=== PATIENT | female | born 1945 | race Caucasian/White ===

== ENCOUNTER 2024-04-29 07:34 | Day surgery (SDC) | payer MEDICARE, BC ==
[2024-04-26 10:43] LABS: BILIRUBIN,URINE NEGATIVE (Neg); CLARITY,URINE CLEAR (Clear); COLOR,URINE YELLOW (Yellow); GLUCOSE, URINE NEGATIVE (Neg); KETONES,URINE NEGATIVE (Neg); LEUKOCYTE ESTERASE ,URINE NEGATIVE (Neg); NITRITES, URINE NEGATIVE (Neg); OCCULT BLOOD,URINE SMALL (Neg); PROTEIN,URINE NEGATIVE (Neg); UROBILINOGEN,URINE 0.2 E.U/dL (0.2-1.0)
[2024-04-26 10:43] LABS: BASOPHILS % (AUTO) 0.8 % (0-1); EOSINOPHILS # (AUTO) 0.1 X10'3 (0-0.9); EOSINOPHILS % (AUTO) 1.3 % (0-6); LYMPHOCYTES # (AUTO) 1.3 X10'3 (1.1-4.8); LYMPHOCYTES % (AUTO) 22.6 % (21-51); MEAN CORPUSCULAR HEMOGLOBIN 31.8 PG (27.0-31.0); MEAN CORPUSCULAR HGB CONC 32.8 g/dL (33.0-36.5); MEAN PLATELET VOLUME 7.1 FL (7.4-10.4); MONOCYTES # (AUTO) 0.5 X10'3 (0-0.9); MONOCYTES % (AUTO) 7.9 % (2-12); NEUTROPHILS % (AUTO) 67.4 % (42-75); PRE OP HEMATOCRIT 39.8 % (35.0-45.0); PRE OP HEMOGLOBIN 13.1 g/dL (12.0-16.0); PRE OP PLATELET COUNT 270 X10'3 (140-440); PRE OP WHITE BLOOD COUNT 5.9 10'3 (4.8-10.8)
[2024-04-26 10:57] LABS: ALBUMIN 3.5 G/DL (3.4-5.0); ALKALINE PHOSPHATASE 65 IU/L (46-116); BLOOD UREA NITROGEN 20 MG/DL (7-18); BUN/CREATININE RATIO 35.1 (10.0-20.0); CALCIUM 8.6 MG/DL (8.5-10.1); CHLORIDE 106 MMOL/L (99-107); CREATININE 0.57 MG/DL (0.40-0.90); PRE OP ALT 16 U/L (30-65); PRE OP ANION GAP 4 (8-16); PRE OP AST 9 U/L (10-37); PRE OP BILIRUB, TOTAL 0.5 MG/DL (0.0-1.0); PRE OP GLUCOSE 94 MG/DL (70-104); PRE OP POTASSIUM 4.8 MMOL/L (3.4-5.1); PRE OP SODIUM 141 MMOL/L (135-145); TOTAL CARBON DIOXIDE 31.4 MMOL/L (24-32); TOTAL PROTEIN 6.9 G/DL (6.4-8.2); eGFR > 90 ML/MIN
[2024-04-26 11:00] LABS: UA COLLECTION TYPE CLN CATCH MIDSTREAM
[2024-04-26 11:05] LABS: WBC,URINE 0-4 /HPF (0-4)
[2024-04-26 11:07] LABS: BACTERIA,URINE FEW /HPF (Neg); SQUAMOUS EPITHELIAL CELL,UR FEW /LPF (FEW)
[2024-04-29] VITALS (14 sets, daily range): BP systolic 133–160; BP diastolic 61–85; PULSE 53–67; RESP 12–20; TEMP 97.7; O2SAT 93–100
[~2024-04-29] VITALS: Ht 182.9 cm; Wt 95.8 kg
[2024-04-29] MEDS: DOCUMENT DATE & TIME OF BETA-BLOCKER PO ONE (05:30)
[~2024-04-29 07:34] MED LIST: CELE-148 PO; ESTR42.53 VG; METO-395 PO; MVI; OMEGA-3; TOLT4CAP28 PO; TURMERIC; VITAMIN C
[2024-04-29] MEDS: famotidine 20mg tablet PO ONE (08:40)
[2024-04-29] MEDS: ringers solution, lacted 1,000 ML IV SCH (08:40)
[2024-04-29] MEDS: ceFAZolin 2gm in dextrose, iso 50 ML IV ONE (08:41)
[2024-04-29] MEDS ORDERED: ringers solution, lacted 1,000 ML IV SCH (08:50)
[2024-04-29] MEDS ORDERED: proCHLORperazine 10 MG/2 ml inj IV PRN (08:50)
[2024-04-29] MEDS ORDERED: meperidine/PF 100mg/ml syringe IV PRN ×3 (08:50)
[2024-04-29] MEDS ORDERED: morphine 2 MG/ML inj. syringe IV PRN (08:50)
[2024-04-29] MEDS ORDERED: labetalol 20mg/4ml (5mg/ml) syringe IV PRN (08:50)
[2024-04-29] MEDS ORDERED: morphine 4 MG/ML inj SYRINge IV PRN (08:50)
[2024-04-29] MEDS ORDERED: ondansetron/PF 4mg/2ml inj IV PRN (08:50)
[2024-04-29] MEDS ORDERED: enalaprilat 1.25mg/ml 2ml vial IV PRN (08:50)
[2024-04-29] MEDS ORDERED: bacitracin 15gm ointment TP ONE (09:58)
[2024-04-29] MEDS ORDERED: BUPIVAcaine 2.5mg/ml inj 50ml vial (contains preservative) ONE (09:58)
[2024-04-29] MEDS ORDERED: sevoflurane 250ml liquid IH ONE (12:36)
[2024-04-29] MEDS ORDERED: fentaNYL/PF 50MCG/1 ML 2ML syringe ONE (12:45)
[2024-04-29] MEDS ORDERED: cloNIDine hcl/PF 100mcg/ml inj ONE (12:46)
[2024-04-29] MEDS ORDERED: MIDAZolam 1 MG/ML 5ML VIAL ONE (12:52)
[2024-04-29] MEDS ORDERED: propofol inj 20 ML IV ONE (12:53)
[2024-04-29] MEDS ORDERED: LIDOcaine 1%/PF 5ML 10 MG/ML VIAL ONE (12:53)
[2024-04-29] MEDS ORDERED: BUPIVAcaine/PF 7.5mg/ml (0.75%) 10ml vial ONE (12:56)
[2024-04-29] MEDS ORDERED: ondansetron/PF 4mg/2ml inj ONE (14:31)
== END 2024-04-29 16:14 | disposition home or self-care (01) ==
LOC: PAS 07:34
PROVIDERS: ATTEND Podiatrist Foot & Ankle Surgery
DX: T84.84XA Pain due to internal orthopedic prosthetic devices, implants and grafts, initial encounter (principal); M72.2 Plantar fascial fibromatosis; G57.51 Tarsal tunnel syndrome, right lower limb; M19.071 Primary osteoarthritis, right ankle and foot; Z79.899 Other long term (current) drug therapy; Z87.440 Personal history of urinary (tract) infections; G89.18 Other acute postprocedural pain; I10 Essential (primary) hypertension; K21.9 Gastro-esophageal reflux disease without esophagitis; M16.11 Unilateral primary osteoarthritis, right hip; M17.11 Unilateral primary osteoarthritis, right knee; Y83.8 Other surgical procedures as the cause of abnormal reaction of the patient, or of later complication, without mention of misadventure at the time of the procedure; J45.909 Unspecified asthma, uncomplicated; Z98.890 Other specified postprocedural states; Z72.89 Other problems related to lifestyle
CPT/HCPCS: 20680; 27641; 28035; 28060; 36415; 64445; 64447; 73630; 80053; 81001; 82948; 85025; 93005; A4215; A4618; A6223; A6402; A6449; A7000; J0690; J0735; J1100; J2250; J2405; J2704; J3010; J3490; J7030; J7120; Z7506; Z7508; Z7512; Z7610; 76000